=== PATIENT | male | born 1990 ===

== ENCOUNTER 2017-12-10 20:09 | Emergency (ER) | payer SELFPAY ==
--- NOTE | 2017-12-10 21:01 | C.PDOC ---
History Of Present Illness 27 year old male presents to ED with complaints of constant lower abdominal pain x2 days. States pain is 4/5 severity. 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 He denies any weightlifting, nausea, vomiting, loss of appetite, constipation, diarrhea, fever, dysuria, stool changes, or weakness. Time Seen by Provider: 12/10/17 20:21 Chief Complaint (Nursing): Abdominal Pain History Per: Patient History/Exam Limitations: no limitations Onset/Duration Of Symptoms: Days Current Symptoms Are (Timing): Still Present Past Medical History Reviewed: Historical Data, Nursing Documentation, Vital Signs Vital Signs: Last Vital Signs Temp 98.7 F 12/10/17 20:12 Pulse 70 12/10/17 20:12 Resp 16 12/10/17 20:12 BP 154/88 H 12/10/17 20:12 Pulse Ox 96 12/10/17 20:12 Family History: States: No Known Family Hx - Social History Hx Alcohol Use: No Hx Substance Use: No Review Of Systems Except As Marked, All Systems Reviewed And Found Negative. Constitutional: Negative for: Fever, Chills Cardiovascular: Negative for: Chest Pain Gastrointestinal: Positive for: Abdominal Pain (lower). Negative for: Nausea, Vomiting, Diarrhea, Melena Genitourinary: Negative for: Dysuria Physical Exam - Physical Exam Additional Physical Exam Comments: Constitutional: No acute distress. Head: Normocephalic. Atraumatic. Eyes: PERRL. ENT: Moist mucous membranes. Neck: Supple. Cardiovascular: Regular rate. Radial pulse 2+ bilaterally. Chest: No tenderness. Respiratory: Clear to auscultation bilaterally. GI: Soft. Nontender. Nondistended. No tenderness at McBurney's point. Patient indicates pain in R sided inguinal/groin area. No mass palpated. Back: No CVA tenderness. Musculoskeletal: No tenderness or swelling of extremities. Skin: No rash. Neurologic: Alert, no focal deficit. ED Course And Treatment - Laboratory Results Result Diagrams: 12/10/17 20:59 12/10/17 20:59 O2 Sat by Pulse Oximetry: 96 (RA) Pulse Ox Interpretation: Normal Medical Decision Making Medical Decision Making: Impression: Abdominal Pain Plan: --Labs --Urinalysis Possibility of appendicitis discussed with patient but unlikely at this time. Risk of CT imaging also discussed. Patient agreeable with blood work and further observation at home. Instructed to return to ED for worsening pain, vomiting, fever, loss of appetite for CT imaging. Disposition - Disposition Disposition: HOME/ ROUTINE Disposition Time: 22:05 Condition: STABLE Instructions: Inguinal and Femoral (Groin) Hernias, Appendicitis, Adult (DC) Forms: [employer] (Tamazight) - Clinical Impression Clinical Impression: Abdominal pain - Scribe Statement The provider has reviewed the documentation as recorded by the Eugenio Guthrie Provider Attestation: All medical record entries made by the Eugenio were at my direction and personally dictated by me. I have reviewed the chart and agree that the record accurately reflects my personal performance of the history, physical exam, medical decision making, and the department course for this patient. I have also personally directed, reviewed, and agree with the discharge instructions and disposition.
[2017-12-10 21:03] LABS: BASO % 0.6 % (0.0-2.0); EOS # 0.1 K/uL (0.0-0.7); EOS % 0.9 % (0.0-4.0); HEMOGLOBIN 15.6 g/dL (12.0-18.0); LYMPH # 1.4 K/uL (1.0-4.3); MEAN CELL VOLUME 84.9 fL (80.0-94.0); MEAN CORPUSCULAR HEMOGLOBIN 28.8 pg (27.0-31.0); MEAN PLATELET VOLUME 8.8 fL (7.2-11.7); MONO # 0.8 K/uL (0.0-0.8); MONO % 11.2 % (0.0-10.0); NEUT % 68.3 % (50.0-75.0); RBC 5.4 Mil/uL (4.40-5.90); RED CELL DISTRIBUTION WIDTH 12.8 % (11.5-14.5); WHITE BLOOD COUNT 7.3 K/uL (4.8-10.8)
[2017-12-10 21:05] LABS: URINE BACTERIA RARE (<OCC); URINE BILIRUBIN NEGATIVE (NEGATIVE); URINE BLOOD NEGATIVE (NEGATIVE); URINE CLARITY Clear (Clear); URINE COLOR Yellow (YELLOW); URINE GLUCOSE (UA) NORMAL (Normal); URINE LEUKOCYTE ESTERASE NEG Leu/uL (Negative); URINE PROTEIN NEGATIVE (NEGATIVE)
[2017-12-10 21:16] LABS: ALB/GLOB RATIO 1.4 (1.0-2.1); ALBUMIN 4.3 g/dL (3.5-5.0); ALT/SGPT 26 U/L (21-72); AST/SGOT 19 U/L (17-59); BLOOD UREA NITROGEN 14 mg/dL (9-20); CALCIUM 9.5 mg/dl (8.6-10.4); GFR NON-AFRICAN AMERICAN > 60
[2017-12-10 22:19] VITALS: BP 155/95; PULSE 65; RESP 20; TEMP 98.1; O2SAT 99
== END 2017-12-10 22:14 | disposition home or self-care (01) ==
LOC: C.ER 20:09
DX: R10.30 Lower abdominal pain, unspecified (principal)

== ENCOUNTER 2018-06-03 16:33 | Emergency (ER) | payer SELFPAY ==
[2018-06-03 16:40] VITALS: BP 130/85; PULSE 85; RESP 20; TEMP 98.3; O2SAT 98
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
== END 2018-06-03 17:36 | disposition home or self-care (01) ==
LOC: C.ER 16:33
DX: S01.112A Laceration without foreign body of left eyelid and periocular area, initial encounter (principal); W01.0XXA Fall on same level from slipping, tripping and stumbling without subsequent striking against object, initial encounter

== ENCOUNTER 2018-07-28 13:33 | Emergency (ER) | payer OTHER ==
[2018-07-28 13:38] VITALS: TEMP 98.8
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
[2018-07-28 15:34] VITALS: BP 148/79; PULSE 79; RESP 16
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
[2018-07-28 16:12] VITALS: O2SAT 100
== END 2018-07-28 15:33 | disposition home or self-care (01) ==
LOC: C.ER 13:33
DX: S93.401A Sprain of unspecified ligament of right ankle, initial encounter (principal); V89.2XXA Person injured in unspecified motor-vehicle accident, traffic, initial encounter